=== PATIENT | female | born 1935 | race Caucasian/White ===

== ENCOUNTER 2017-10-29 23:33 | Inpatient (IN) | payer OTHER, MEDICARE ==
[2017-10-30 00:14] LABS: Arterial Blood Carboxyhemoglob 0.8 % (0-1.5); Blood O2 Saturation 97.7 % (92-98.5)
[2017-10-30 00:22] LABS: Absolute Lymphocytes (CBC) 1.1 K/uL (0.7-4.9); Absolute Monocytes 1.6 K/uL (0.1-1.3); Absolute Neutrophil 14.3 K/uL (1.8-8.0); Basophils % 0.6 % (0-1.3); Eosinophils % 0.4 % (0-4.4); Hematocrit 37.3 % (36.0-45.0); Lymphocytes % 6.4 % (15.3-44.8); MCH 31.3 pg (27.0-35.0); MCV 89.9 fL (80-100); MPV 10.2 fL (7.6-11.3); Monocytes % 9.3 % (3.3-12.3); RBC Red Blood Cell Count 4.15 M/uL (3.86-4.86)
[2017-10-30] MEDS ORDERED: NA CHLORIDE 0.9% 1,000 ML ONE (00:35)
[2017-10-30 00:39] LABS: Protime INR 1.24
[2017-10-30 00:41] LABS: Albumin 2.9 g/dL (3.4-5.0); Bilirubin Direct 0.3 mg/dL (0-0.2); Bilirubin Total 0.6 mg/dL (0.2-1.0); Potassium 3.4 mmol/L (3.5-5.1); Protein, Total 6.5 g/dL (6.4-8.2)
--- NOTE | 2017-10-30 00:47 | ER ---
Nurse's Notes [facility] Name: Mireya Farah Age: 81 yrs Sex: Female : 1935 Arrival Date: 10/29/2017 Time: 23:36 Bed 7 Private MD: Diagnosis: Urinary tract infection, site not specified;Altered mental status, unspecified;Dehydration Presentation: 10/29 23:30 Presenting complaint: EMS states: that they were toned for resp distress. States that [facility] did CXR today and it shows pleural effusions. Pt is also only responsive to painful stimuli. Transition of care: patient was not received from another setting of care. Onset of symptoms was October 29, 2017. Risk Assessment: Do you want to hurt yourself or someone else? Patient reports no desire to harm self or others. Initial Sepsis Screen: Does the patient meet any 2 criteria? RR > 20 per min. HR > 90 bpm. Does the patient have a suspected source of infection? Yes: Productive cough/pneumonia. Care prior to arrival: IV initiated. 20 GA, in the right wrist. 23:30 Method Of Arrival: EMS: [facility] 23:30 Acuity: SHEILA 2 Historical: - Allergies: 23:48 Codeine; - Home Meds: 23:48 ceftriaxone 1 gram injection solr every 12 hours [Active]; DuoNeb 0.5 mg-3 mg(2.5 mg fc base)/3 mL Inhl nebu 3 mL 4 times per day [Active]; donepezil 23 mg oral tab 1 tab once daily [Active]; lisinopril 10 mg Oral tab 1 tab once daily [Active]; phenytoin 100 mg/4 mL Oral susp 16 mL nightly [Active]; trazodone 50 mg Oral tab .5 tab nightly [Active]; Xarelto 20 mg oral tab 1 tab once daily [Active]; - PMHx: 23:48 Alzheimers; muscle atrophy; UTI; Depression; insomnia; Absence epileptic syndrome; fc hypokalemia; Dementia; Hypertension; Aphasia; CVA; - Immunization history:: Last tetanus immunization: unknown. - Social history:: Smoking status: Patient/guardian denies using tobacco. - Ebola Screening: : Patient negative for fever greater than or equal to 101.5 degrees Fahrenheit, and additional compatible Ebola Virus Disease symptoms Patient denies exposure to infectious person Patient denies travel to an Ebola-affected area in the 21 days before illness onset. Screenin:42 Abuse screen: Denies threats or abuse. Nutritional screening: No deficits noted. fc Tuberculosis screening: No symptoms or risk factors identified. Fall Risk Fall in past 12 months (25 points). Secondary diagnosis (15 points) Alzheimer's, dementia, IV access (20 points). Ambulatory Aid- None/Bed Rest/Nurse Assist (0 pts). Gait- Impaired (20 pts.). Mental Status- Overestimates/Forgets Limitations (15 pts.). Total Puri Fall Scale indicates High Risk Score (45 or more points). Fall prevention measures have been instituted. Side Rails Up X 2 Placed Close to Nursing Station Frequent Obs/Assessments Occuring Family Present and informed to notify staff if the need to leave the bedside As available patient and family educated on Fall Prevention Program and Strategies. Assessment: 23:50 General: Appears in no apparent distress. Behavior is listless. Pain: Unable to use aa1 pain scale. Patient is disoriented. FLACC scale score is 0 out of 10. Neuro: Level of Consciousness is awake, listless, Oriented to none Speech no verbal response from pt. Facial symmetry appears normal, Pupils are PERRLA, pt does not follow commands or participate with assessment. Cardiovascular: Heart tones S1 S2 present Capillary refill < 3 seconds Clubbing of nail beds is absent JVD is absent Rhythm is regular. Respiratory: Airway is patent Respiratory effort is even, unlabored, Respiratory pattern is regular, symmetrical, Breath sounds are clear bilaterally. GI: Abdomen is non-distended, Abd is soft and non tender X 4 quads. : No signs and/or symptoms were reported regarding the genitourinary system. EENT: No signs and/or symptoms were reported regarding the EENT system. EENT: Oral mucosa is dry. Derm: Skin is intact, is healthy with good turgor, Skin is pink, warm \T\ dry. Musculoskeletal: Circulation, motion, and sensation intact. Capillary refill < 3 seconds, Range of motion: limited in all extremities, passive ROM limited in all extremities. 10/30 00:55 Reassessment: Patient appears in no apparent distress at this time. No changes from aa1 previously documented assessment. Patient and/or family updated on plan of care and expected duration. Pain level reassessed. Son at bedside. Pt to be admitted to hospital. 01:45 Reassessment: Patient appears in no apparent distress at this time. Patient and/or aa1 family updated on plan of care and expected duration. Pain level reassessed. Pt admitted to 4th floor. Vital Signs: 10/29 23:30 BP 116 / 67; Pulse 106; Resp 24; Pulse Ox 97% on R/A; Weight 68.04 kg (R); Height 5 ft. fc 4 in. (162.56 cm) (R); Pain 0/10; 10/30 00:30 Temp 99.3(A); aa1 00:33 BP 111 / 59; Pulse 100; Resp 20; Pulse Ox 98% on R/A; mt 01:20 BP 112 / 61; Pulse 95; Resp 24; Pulse Ox 97% on 2 lpm NC; aa1 01:55 BP 106 / 76; Pulse 105; Resp 18; Pulse Ox 98% on R/A; mt 10/29 23:30 Body Mass Index 25.75 (68.04 kg, 162.56 cm) fc Geraldo Coma Score: 10/29 23:57 Eye Response: to voice(3). Verbal Response: incomprehensible(2). Motor Response: jr8 localizes pain(5). Total: 10. ED Course: 23:30 Arm band placed on Patient placed in an exam room, on a stretcher. fc 23:36 Patient arrived in ED. ds1 23:37 Gerry Tucker PA is PHCP. jr8 23:37 Korey Mccarthy MD is Attending Physician. jr8 23:41 Triage completed. fc 23:42 Patient has correct armband on for positive identification. Bed in low position. Call fc light in reach. Side rails up X2. picking table worker on. Pulse ox on. NIBP on. 23:42 Maintain EMS IV. Dressing intact. Good blood return noted. Site clean \T\ dry. Gauge \T\ fc site: 20 gauge to right wrist. 23:47 X-ray completed. Portable x-ray completed in exam room. Patient tolerated procedure kw well. 23:48 Chest Single View XRAY In Process Unspecified. EDMS 23:57 Dunia Barrett RN is Primary Nurse. aa1 10/30 00:19 CT Head Brain wo Cont In Process Unspecified. EDMS 00:30 Straight cath inserted, using sterile technique, 16 Fr. Returned juan urine. Patient aa1 tolerated well. done by nando Do. 00:45 Becky Pappas MD is Hospitalizing Provider. jr8 01:50 No provider procedures requiring assistance completed. Patient admitted, IV remains in fc place. 02:19 Primary Nurse role handed off by Dunia Barrett RN aa1 02:32 CT completed. Patient tolerated procedure well. Patient moved to [place] via stretcher. Patient moved back from AK. Administered Medications: 00:39 Drug: NS 0.9% 1000 ml Route: IV; Rate: 1 bolus; Site: right forearm; aa1 01:20 Follow up: IV Status: Completed infusion aa1 00:44 CANCELLED (Physician Discretion): Rocephin 2 grams IV at calculated rate once; Given jr8 slow IV push per pharmarcy instructions 01:19 Drug: Potassium Chloride 20 mEq Route: IV; Rate: calculated rate; Site: right forearm; aa1 02:00 Follow up: IV Status: Infusion continued upon admission aa1 01:20 Drug: Zosyn 3.375 grams Route: IVPB; Infused Over: 60 mins; Site: right forearm; aa1 02:00 Follow up: IV Status: Infusion continued upon admission aa1 Intake: 01:20 IV: 1000ml (IV Fluid); Total: 1000ml. aa1 Outcome: 00:46 Decision to Hospitalize by Provider. jr8 01:50 Admitted to [facility] by [facility], via stretcher, room 431, with chart, Report fc called to Tanja HORNER 01:50 Condition: good 01:50 Discharge instructions given to family, Instructed on the need for admit, Demonstrated understanding of instructions. 02:00 Patient left the ED. aa1 Signatures: Dispatcher [employer] EDMS Dunia Barrett, [place] RN aa1 Kyler Geller Anna Meyers RN RN Tsering Wong ds1 Reyna Wylie Josh, PA PA jr8 Dipika Shaikh ak Corrections: (The following items were deleted from the chart) 00:41 00:30 Straight cath inserted, using sterile technique, 16 Fr. Returned juan urine. aa1 Patient tolerated well. aa1 02:22 02:17 Patient left the ED. aa1 aa1 02:22 02:21 Patient left the ED. aa1 aa1
--- NOTE | 2017-10-30 00:47 | EDPHYS ---
Physician Documentation [facility] Name: Mireya Farah Age: 81 yrs Sex: Female : 1935 Arrival Date: 10/29/2017 Time: 23:36 Bed 7 Private MD: ED Physician Korey Mccarthy HPI: 10/29 23:57 This 81 yrs old Female presents to ER via EMS with complaints of AMS. jr8 23:57 The patient presents with decreased mental status, decreased responsiveness. Onset: The jr8 symptoms/episode began/occurred acutely, today. Possible causes: unknown. Associated signs and symptoms: Pertinent positives: shortness of breath. Current symptoms: In the emergency department the patient's symptoms are unchanged from the initial presentation. Patient's baseline: Neuro: alert but confused, Motor: no deficits, Speech: normal. It is unknown whether or not the patient has had similar symptoms in the past. It is unknown whether or not the patient has recently seen a physician. EMS called out initially for respiratory distress. Patient without distress upon arrival. Awake but non responsive to verbal stimulus. Will only moan with painful stimulus . Historical: - Allergies: 23:48 Codeine; fc - Home Meds: 23:48 ceftriaxone 1 gram injection solr every 12 hours [Active]; DuoNeb 0.5 mg-3 mg(2.5 mg fc base)/3 mL Inhl nebu 3 mL 4 times per day [Active]; donepezil 23 mg oral tab 1 tab once daily [Active]; lisinopril 10 mg Oral tab 1 tab once daily [Active]; phenytoin 100 mg/4 mL Oral susp 16 mL nightly [Active]; trazodone 50 mg Oral tab .5 tab nightly [Active]; Xarelto 20 mg oral tab 1 tab once daily [Active]; - PMHx: 23:48 Alzheimers; muscle atrophy; UTI; Depression; insomnia; Absence epileptic syndrome; fc hypokalemia; Dementia; Hypertension; Aphasia; CVA; - Immunization history:: Last tetanus immunization: unknown. - Social history:: Smoking status: Patient/guardian denies using tobacco. - Ebola Screening: : Patient negative for fever greater than or equal to 101.5 degrees Fahrenheit, and additional compatible Ebola Virus Disease symptoms Patient denies exposure to infectious person Patient denies travel to an Ebola-affected area in the 21 days before illness onset. ROS: 23:57 Unable to obtain ROS due to altered mental status. jr8 Exam: 23:57 Eyes: Pupils equal round and reactive to light, extra-ocular motions intact. Lids and jr8 lashes normal. Conjunctiva and sclera are non-icteric and not injected. Cornea within normal limits. Periorbital areas with no swelling, redness, or edema. ENT: Nares patent. No nasal discharge, no septal abnormalities noted. Tympanic membranes are normal and external auditory canals are clear. Oropharynx with no redness, swelling, or masses, exudates, or evidence of obstruction, uvula midline. Mucous membranes moist. Neck: Trachea midline, no thyromegaly or masses palpated, and no cervical lymphadenopathy. Supple Cardiovascular: Sinus tachycardia with a normal S1 and S2. No gallops, murmurs, or rubs. Normal PMI, no JVD. No pulse deficits. Respiratory: Lungs have equal breath sounds bilaterally, clear to auscultation and percussion. No rales, rhonchi or wheezes noted. No increased work of breathing, no retractions or nasal flaring. Abdomen/GI: Soft, non-tender, with normal bowel sounds. No distension or tympany. No guarding or rebound. No evidence of tenderness throughout. Skin: Warm, dry with normal turgor. Normal color with no rashes, no lesions, and no evidence of cellulitis. MS/ Extremity: Pulses equal, no cyanosis. Neurovascular intact. Full, normal range of motion. 23:57 Neuro: Orientation: Not oriented to person, place, time, situation, Motor: withdrawals from pain, Sensation: no obvious gross deficits, seizure activity, is not displayed by the patient, Abnormal movements: there are no abnormal movements. Vital Signs: 23:30 BP 116 / 67; Pulse 106; Resp 24; Pulse Ox 97% on R/A; Weight 68.04 kg (R); Height 5 ft. fc 4 in. (162.56 cm) (R); Pain 0/10; 07 00:30 Temp 99.3(A); aa1 00:33 BP 111 / 59; Pulse 100; Resp 20; Pulse Ox 98% on R/A; mt 01:20 BP 112 / 61; Pulse 95; Resp 24; Pulse Ox 97% on 2 lpm NC; aa1 01:55 BP 106 / 76; Pulse 105; Resp 18; Pulse Ox 98% on R/A; mt 10/29 23:30 Body Mass Index 25.75 (68.04 kg, 162.56 cm) fc Bingham Coma Score: 10/29 23:57 Eye Response: to voice(3). Verbal Response: incomprehensible(2). Motor Response: jr8 localizes pain(5). Total: 10. MDM: 23:37 Patient medically screened. 10/30 00:45 Data reviewed: vital signs, nurses notes, lab test result(s), EKG, radiologic studies, jr8 CT scan, plain films, and as a result, I will admit patient. Data interpreted: Pulse oximetry: on room air is 98 %. Interpretation: normal. Counseling: I had a detailed discussion with the patient and/or guardian regarding: the historical points, exam findings, and any diagnostic results supporting the discharge/admit diagnosis, lab results, radiology results, the need for further work-up and treatment in the hospital. 10/29 23:38 Order name: ABG; Complete Time: 00:28 10/29 23:38 Order name: Urine Microscopic Only 10/29 23:38 Order name: Basic Metabolic Panel 10/29 23:38 Order name: Blood Culture Adult (2) 10/29 23:38 Order name: CBC with Diff; Complete Time: 00:41 [facility] 10/29 23:38 Order name: Lactate; Complete Time: 00:41 10/29 23:38 Order name: LFT's; Complete Time: 00:41 10/29 23:38 Order name: Lipase; Complete Time: 00:41 10/29 23:38 Order name: Procalcitonin; Complete Time: 01:18 10/29 23:38 Order name: Protime (+inr); Complete Time: 00:41 10/29 23:38 Order name: Troponin (emerg Dept Use Only); Complete Time: 00:50 10/29 23:39 Order name: Urine Microscopic Only; Complete Time: 01:18 [facility] 10/29 23:39 Order name: Basic Metabolic Panel; Complete Time: 00:41 [facility] 10/30 00:43 Order name: Urine Dipstick--Ancillary (enter results); Complete Time: 00:56 2 10/29 23:38 Order name: Cath; Complete Time: 00:36 8 10/29 23:38 Order name: Chest Single View XRAY 8 10/29 23:38 Order name: Accucheck; Complete Time: 00:36 8 10/29 23:38 Order name: Cardiac monitoring; Complete Time: 00:11 [facility] 10/29 23:38 Order name: EKG - Nurse/Tech; Complete Time: 00:11 [facility] 10/29 23:38 Order name: IV Saline Lock - Large Bore; Complete Time: 00:11 [facility] 10/29 23:38 Order name: Labs collected and sent; Complete Time: 00:11 [facility] 10/29 23:38 Order name: O2 Per Protocol; Complete Time: 00:11 [facility] 10/29 23:38 Order name: CT Head Brain wo Cont [facility] 10/30 00:56 Order name: LAB Add On [facility] 10/30 00:58 Order name: Phenytoin (Dilantin) Level; Complete Time: 01:18 [facility] 10/30 01:07 Order name: Urine Culture [facility] 10/29 23:38 Order name: O2 Sat Monitoring; Complete Time: 00:11 [facility] 10/29 23:38 Order name: Urine Dipstick-Ancillary (obtain specimen); Complete Time: 00:36 jr8 Administered Medications: 00:39 Drug: NS 0.9% 1000 ml Route: IV; Rate: 1 bolus; Site: right forearm; aa1 01:20 Follow up: IV Status: Completed infusion aa1 00:44 CANCELLED (Physician Discretion): Rocephin 2 grams IV at calculated rate once; Given jr8 slow IV push per pharmarcy instructions 01:19 Drug: Potassium Chloride 20 mEq Route: IV; Rate: calculated rate; Site: right forearm; aa1 02:00 Follow up: IV Status: Infusion continued upon admission aa1 01:20 Drug: Zosyn 3.375 grams Route: IVPB; Infused Over: 60 mins; Site: right forearm; aa1 02:00 Follow up: IV Status: Infusion continued upon admission aa1 Disposition: 07:00 Co-signature as Attending Physician, Korey Mccarthy MD I agree with the assessment and eleazar plan of care. Disposition: 07/10/18 00:46 Hospitalization ordered by Becky Pappas for Inpatient Admission. Preliminary diagnosis are Urinary tract infection, site not specified, Altered mental status, unspecified, Dehydration. - Bed requested for Telemetry/MedSurg (Inpatient). - Status is Inpatient Admission. aa1 - Condition is Fair. - Problem is new. - Symptoms are unchanged. UTI on Admission? Yes Signatures: Dispatcher [employer] EDMS Ritika Bello RN RN Dunia Barrett RN RN aa Korey Mccarthy MD MD cha Chretien, Felicia, RN RN Gerry Tucker PA PA jr8 Corrections: (The following items were deleted from the chart) 00:44 00:42 Rocephin 2 grams IV at calculated rate once; Given slow IV push per pharmarcy jr8 instructions ordered. jr8 00:47 00:46 Hospitalization Ordered by Becky Pappas MD for Inpatient Admission. Preliminary jr8 diagnosis is Pneumonia due to other specified bacteria; Urinary tract infection, site not specified; Altered mental status, unspecified; Dehydration. Bed requested for Telemetry/MedSurg (Inpatient). Status is Inpatient Admission. Condition is Fair. Problem is new. Symptoms are unchanged. UTI on Admission? Yes. jr8 00:49 00:47 10/30/2017 00:46 Hospitalization Ordered by Becky Pappas MD for Inpatient Admission. Preliminary diagnosis is Urinary tract infection, site not specified; Altered mental status, unspecified; Dehydration. Bed requested for Telemetry/MedSurg (Inpatient). Status is Inpatient Admission. Condition is Fair. Problem is new. Symptoms are unchanged. UTI on Admission? Yes. jr8 02:17 00:49 10/30/2017 00:46 Hospitalization Ordered by Becky Pappas MD for Inpatient aa1 Admission. Preliminary diagnosis is Pneumonia due to other specified bacteria; Urinary tract infection, site not specified; Altered mental status, unspecified; Dehydration. Bed requested for Telemetry/MedSurg (Inpatient). Status is Inpatient Admission. Condition is Fair. Problem is new. Symptoms are unchanged. UTI on Admission? Yes. 02:21 02:17 10/30/2017 00:46 Hospitalization Ordered by Becky Pappas MD for Inpatient aa1 Admission. Preliminary diagnosis is Urinary tract infection, site not specified; Altered mental status, unspecified; Dehydration. Bed requested for Telemetry/MedSurg (Inpatient). Status is Inpatient Admission. Condition is Fair. Problem is new. Symptoms are unchanged. UTI on Admission? Yes. aa1
[2017-10-30 00:55] LABS: Urine Blood 3+ (NEG); Urine Glucose TRACE (NEG); Urine Protein 3+ (NEG); Urine Specific Gravity >1.030 (1.005-1.030)
[2017-10-30 01:06] LABS: Urine Bacteria >50 /HPF (<20); Urine Culture Reflex Order REFLEXED; Urine RBC TNTC /HPF (NONE SEEN)
[2017-10-30] MEDS ORDERED: PIPER/TAZO/NS 3.375gm 3.375 GM/100 ML BAG ONE (01:08)
[2017-10-30] MEDS ORDERED: KCL 20 MEQ/100 mL IVPB 20 MEQ/100 ML BAG IV ONE (01:08)
[2017-10-30] MEDS ORDERED: NA CHLORIDE 0.9% 500 ML ONE (01:13)
--- NOTE | 2017-10-30 01:41 | P.HP ---
Certification for Inpatient Patient admitted to: Inpatient With expected LOS: >2 Midnights Practitioner: I am a practitioner with admitting privileges, knowledge of patient current condition, hospital course, and medical plan of care. Services: Services provided to patient in accordance with Admission requirements found in Title 42 Section 412.3 of the Code of Federal Regulations Patient History Date of Service: 10/30/17 Reason for admission: UTI, AMS History of Present Illness: Ms Farah is an 81 years old woman with history of Dementia, HTN, seizure disorder, who is resident of a local assisted, was transferred to ED because she was found with AMS. The patient was not responsive, she had a CXR in the assisted showing pleural effusion. No reported history of fever or chills. In ER lab work remarkable for leukocytosis 17.1K, hypokalemia, abnormal UA consistent with UTI. CT head shows no acute abnormalities. Allergies codeine [Codeine] Adverse Reaction (Mild, Verified 10/30/17 01:13) Nausea/Vomiting Home medications list reviewed: Yes Home Medications: Lisinopril [Zestril] 10 mg PO DAILY 03/20/14 Trazodone [Desyrel*] 25 mg PO BEDTIME 08/19/14 Ceftriaxone [Rocephin] 1,000 mg IM BID 10/30/17 Donepezil HCl 23 mg PO DAILY 10/30/17 Phenytoin Susp [Dilantin Oral Susp*] 16 ml PO BEDTIME 10/30/17 Rivaroxaban [Xarelto] 20 mg PO DAILY 10/30/17 - Past Medical/Surgical History Diabetic: No -: ? fungual? pneumonia ~ 10 yrs ago. -: dementia -: seizures -: alzheimers -: UTI -: Hypokalemia -: Leukocytosis -: Fall -: tonsilectomy -: hysperectomy -: appy - Family History Family History: Reviewed- Non-Contributory - Social History Alcohol use: No CD- Drugs: No Caffeine use: No Place of Residence: [facility] Review of Systems is unable to be obtained (patient is not able to answer questions) Physical Examination - Physical Exam General: Alert, In no apparent distress HEENT: Atraumatic, PERRLA, Other (mucous membr. very dry), EOMI, Sclerae nonicteric Neck: Supple, 2+ carotid pulse no bruit, No LAD, Without JVD or thyroid abnormality Respiratory: Normal air movement, Other (coarse bilateral) Cardiovascular: Regular rate/rhythm, Normal S1 S2 Gastrointestinal: Normal bowel sounds, No tenderness Musculoskeletal: No tenderness Integumentary: No rashes Neurological: Normal strength at 5/5 x4 extr, Normal tone, Sensation intact Lymphatics: No axilla or inguinal lymphadenopathy - Studies Laboratory Data (last 24 hrs) 10/29/17 23:59: PT 14.7 H, INR 1.24 10/29/17 23:59: WBC 17.1 H, Hgb 13.0, Hct 37.3, Plt Count 289 10/29/17 23:59: Sodium 142, Potassium 3.4 L, BUN 16, Creatinine 0.70, Glucose 139 H, Total Bilirubin 0.6, AST 30, ALT 35, Alkaline Phosphatase 177 H, Lipase 136 Assessment and Plan - Problems (Diagnosis) (1) Acute encephalopathy Current Visit: Yes Status: Acute (2) Dementia Onset Date: 04/03/16 Current Visit: No Status: Acute Qualifiers: Dementia type: Alzheimer's disease Alzheimer's disease onset: unspecified onset Dementia behavioral disturbance: without behavioral disturbance Qualified Code(s): G30.9 - Alzheimer's disease, unspecified; F02.80 - Dementia in other diseases classified elsewhere without behavioral disturbance (3) Seizure disorder Onset Date: 04/03/16 Current Visit: No Status: Acute (4) UTI (urinary tract infection) Onset Date: 04/03/16 Current Visit: No Status: Acute Qualifiers: Urinary tract infection type: acute cystitis Hematuria presence: without hematuria Qualified Code(s): N30.00 - Acute cystitis without hematuria - Plan The patient will be admitted to the hospital due to acute encephalopathy secondary to UTI. She is tachycardic, with blood pressure on the lower side. Will continue IV fluids, IV antibiotics. Will keep her NPO until improve her mentation. Blood and Urine culture in process. - Advance Directives Does patient have a Living Will: No Does patient have a Durable POA for Healthcare: Yes - Code Status/Comfort Care Code Status Assessed: Yes Code Status: Full Code
[2017-10-30] MEDS ORDERED: ONDANSETRON 4 MG/2 ML VIAL IV PRN (02:27)
[2017-10-30 02:29] VITALS: BMI 26.8
[2017-10-30] MEDS: NA CHLORIDE 0.9% 1,000 ML IV SCH ×3 (02:39→23:52)
[2017-10-30] MEDS ORDERED: KCL 20 MEQ/100 mL IVPB 20 MEQ/100 ML BAG IV SCH ×2 (05:00→17:00)
--- NOTE | 2017-10-30 07:56 | P.PN ---
Subjective Date of Service: 10/30/17 Primary Care Provider: residential Chief Complaint: UTI, AMS Subjective: Demented, Other (Patient resting in bed.) Physical Examination - Vital Signs Temperature: 97.0 F Blood Pressure: 106/58 Pulse: 78 Respirations: 18 Pulse Ox (%): 98 - Physical Exam General: Alert, Demented HEENT: Atraumatic Neck: Supple Respiratory: Clear to auscultation bilaterally, Normal air movement Cardiovascular: Normal pulses, Regular rate/rhythm Gastrointestinal: Normal bowel sounds, Soft and benign, Non-distended, No tenderness, No masses, No rebound, No guarding Musculoskeletal: No erythema, No tenderness, No warmth Neurological: Dementia - Studies Laboratory Data (last 24 hrs) 10/29/17 23:59: PT 14.7 H, INR 1.24 10/29/17 23:59: WBC 17.1 H, Hgb 13.0, Hct 37.3, Plt Count 289 10/29/17 23:59: Sodium 142, Potassium 3.4 L, BUN 16, Creatinine 0.70, Glucose 139 H, Total Bilirubin 0.6, AST 30, ALT 35, Alkaline Phosphatase 177 H, Lipase 136 Medications List Reviewed: Yes Assessment & Plan - Problems (Diagnosis) (1) Hypertension Current Visit: Yes Status: Chronic Plan: Will restart longterm medication. Will need to verify medication. Will hold if blood pressure systolic less than 120. Qualifiers: Hypertension type: essential hypertension Qualified Code(s): I10 - Essential (primary) hypertension (2) Acute encephalopathy Current Visit: Yes Status: Acute Plan: Likely from UTI. Patient with recurrent UTI. Will continue with antibiotic therapy. Will monitor electrolytes and white count. Urine and blood culture obtained. (3) Dementia Onset Date: 08/19/14 Current Visit: No Status: Chronic Plan: Continue her longterm medication. Qualifiers: Dementia type: Alzheimer's disease (4) Seizure disorder Onset Date: 04/03/16 Current Visit: No Status: Chronic Plan: Continue her longterm medication. (5) UTI (urinary tract infection) Onset Date: 04/03/16 Current Visit: No Status: Acute Plan: Continue antibiotic therapy. Await urine and blood culture results. Pro calcitonin negative. Qualifiers: Urinary tract infection type: acute cystitis Hematuria presence: without hematuria Qualified Code(s): N30.00 - Acute cystitis without hematuria (6) Chronic anticoagulation Current Visit: Yes Status: Chronic Plan: Patient taking Xarelto. Suspect underlying atrial fibrillation. Will need to verify with snf. Discharge Plan: Long-Term Plan to discharge in: Greater than 2 days - Code Status/Comfort Care Code Status Assessed: Yes (Will need to verify advanced directives) Time Spent Managing Pts Care (In Minutes): 55
--- NOTE | 2017-10-30 08:29 | RAD REPORT ---
EXAM DESCRIPTION: RAD - Chest Single View - 10/29/2017 11:51 pm CLINICAL HISTORY: AMS Chest pain. COMPARISON: Chest Single View dated 04/02/2016; Chest Single View dated 04/01/2016; CHEST SINGLE VIE W dated 08/19/2014; CHEST SINGLE VIEW dated 03/21/2014 FINDINGS: Portable technique limits examination quality. Bibasilar opacities are present, greatest in the left lower lobe, suspicious for pneumonia. Small to moderate right pleural effusion is suspected. The lungs are mildly emphysematous. The heart is normal in size. No displaced fractures.
--- NOTE | 2017-10-30 08:32 | RAD REPORT ---
EXAM DESCRIPTION: CT - Head Brain Wo Cont - 10/30/2017 6:41 am CLINICAL HISTORY: MENTAL STATUS CHANGE Syncope with fall. COMPARISON: Head Brain Wo Cont dated 04/01/2016; HEAD BRAIN W O CONTRAST dated 04/23/2014Head Brain Wo Cont dated 04/01/2016; HEAD BRAIN W O CONTRAST dated 04/23/2014; HEAD BRAIN W O CONTRAST dated 03/28/20 13 TECHNIQUE: All CT scans are performed using dose optimization technique as appropriate and may inclu de automated exposure control or mA/KV adjustment according to patient size. FINDINGS: No intracranial hemorrhage, hydrocephalus or extra-axial fluid collection.Moderate general ized brain atrophy is present with moderate periventricular and deep white matter chronic microvascul ar ischemic changes.No areas of brain edema or evidence of midline shift. 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 The paranasal sinuses and mastoids are clear. The calvarium is intact. IMPRESSION: No acute intracranial abnormality.
--- NOTE | 2017-10-30 08:36 | EKG ---
Test Date: 2017-10-29 Test Time: 23:35:21 Stockroom Helper: RAN MEASUREMENT RESULTS: Intervals: Rate: 105 [place]: 154 QRSD: 76 QT: 350 QTc: 462 [place]: P: 80 [place]: 154 QRS: 2 T: 81 INTERPRETIVE STATEMENTS: Sinus tachycardia Low voltage QRS Cannot rule out Anterior infarct, age undetermined Abnormal ECG Compared to ECG 04/02/2016 05:45:23 Low QRS voltage now present Myocardial infarct finding now present Sinus rhythm no longer present Sinus arrhythmia no longer present Electronically Signed On 10-30-17 08:35:13 CDT by Major Flynn
[2017-10-30] MEDS: LISINOPRIL 10 MG TAB PO SCH (09:00)
[2017-10-30] MEDS ORDERED: CEFTRIAXONE/SWI 1gm 1 GM/10 ML SYR IV SCH (09:00)
[2017-10-30] MEDS: DONEPEZIL HCL 5 MG TAB PO SCH ×2 (09:00→21:35)
[2017-10-30] MEDS ORDERED: CEFTRIAXONE 1 GM/NS 50 ML 1 GM/50 ML BAG IV SCH (09:00)
[2017-10-30] MEDS ORDERED: LISINOPRIL 10 MG TAB PO SCH (09:00)
[2017-10-30] MEDS: Levofloxacin500mg IV 500 MG/100 ML BAG IV SCH (12:01)
[2017-10-30] MEDS: RIVAROXABAN 20 MG TABLET PO SCH ×2 (16:57→17:14)
[2017-10-30] MEDS: PHENYTOIN 125 MG/5 ML ORAL.SUSP PO SCH (21:00)
[2017-10-30] MEDS: TRAZODONE 50 MG TABLET PO SCH (21:34)
[2017-10-31 04:36] LABS: Absolute Lymphocytes (CBC) 0.9 K/uL (0.7-4.9); Absolute Monocytes 1.1 K/uL (0.1-1.3); Absolute Neutrophil 6.2 K/uL (1.8-8.0); Basophils % 1.1 % (0-1.3); Eosinophils % 2.8 % (0-4.4); Hematocrit 32.6 % (36.0-45.0); Lymphocytes % 10.5 % (15.3-44.8); MCH 31.8 pg (27.0-35.0); MCV 89.5 fL (80-100); MPV 10.4 fL (7.6-11.3); Monocytes % 12.7 % (3.3-12.3); RBC Red Blood Cell Count 3.64 M/uL (3.86-4.86)
[2017-10-31 04:55] LABS: BUN Blood Urea Nitrogen 8 mg/dL (7-18); Bicarbonate 25 mmol/L (21-32); Glucose Level 88 mg/dL (74-106); Magnesium 1.8 mg/dL (1.8-2.4); Potassium 3.6 mmol/L (3.5-5.1); Sodium Level 142 mmol/L (136-145)
[2017-10-31] MEDS ORDERED: POTASSIUM CL SA 10 MEQ TAB PO ONE (05:08)
[2017-10-31] MEDS ORDERED: MAGNESIUM SULFATE 1 gm IVPB 1 GM/100 ML BAG IV ONE (05:08)
[2017-10-31] MEDS ORDERED: Magnesium Sulfate 1gm IVPB 1 GM/50 ML BAG IV ONE (05:37)
--- NOTE | 2017-10-31 09:00 | RAD REPORT ---
EXAM DESCRIPTION: RAD - Chest Single View - 10/31/2017 6:39 am CLINICAL HISTORY: Follow up Pneumonia and Pleural effusions. Chest pain. COMPARISON: Chest Single View dated 10/29/2017; Chest Single View dated 04/02/2016; Chest Single View dated 04/01/2016; CHEST SINGLE VIEW dated 08/19/2014 FINDINGS: Portable technique limits examination quality. Mild improvement is noted in the left lung base aeration since comparative study. Right pleural effus ion is still present, similar to comparative exam. The heart is normal in size. No displaced fracture s. IMPRESSION: Mild improvement left lung base aeration since comparative study.
[2017-10-31] MEDS: LISINOPRIL 10 MG TAB PO SCH (09:33)
[2017-10-31] MEDS: NA CHLORIDE 0.9% 1,000 ML IV SCH ×2 (09:34→17:29)
[2017-10-31] MEDS: DONEPEZIL HCL 5 MG TAB PO SCH ×2 (09:34→20:47)
[2017-10-31] MEDS: Levofloxacin500mg IV 500 MG/100 ML BAG IV SCH (10:24)
--- NOTE | 2017-10-31 12:49 | P.PN ---
Subjective Date of Service: 10/31/17 Primary Care Provider: [facility] Chief Complaint: UTI, AMS Subjective: Demented, Other (Patient more alert today.) Physical Examination - Vital Signs Temperature: 97.9 F Blood Pressure: 125/63 Pulse: 84 Respirations: 20 Pulse Ox (%): 97 - Physical Exam General: Alert, In no apparent distress, Demented HEENT: Atraumatic Neck: Supple Respiratory: Other (Better aeration bilateral) Cardiovascular: Regular rate/rhythm Gastrointestinal: Normal bowel sounds, Soft and benign, Non-distended, No tenderness, No masses, No rebound, No guarding Musculoskeletal: No erythema, No tenderness, No warmth Integumentary: No erythema, No warmth, No cyanosis Neurological: Dementia - Studies Medications List Reviewed: Yes Assessment & Plan - Problems (Diagnosis) (1) Hypertension Onset Date: 10/30/17 Current Visit: Yes Status: Chronic Plan: Will continue with her medication. Will monitor and adjust appropriately Qualifiers: Hypertension type: essential hypertension Qualified Code(s): I10 - Essential (primary) hypertension (2) Acute encephalopathy Onset Date: 10/30/17 Current Visit: Yes Status: Acute Plan: Likely from UTI and pneumonia. Continue antibiotic coverage. Overall improved. Discuss with son. Son broad advanced directives. Patient is DNR. [facility]ticipate [facility] likely tomorrow. (3) Dementia Onset Date: 08/19/14 Current Visit: No Status: Chronic Plan: Continue her jail medication. Qualifiers: Dementia type: Alzheimer's disease (4) Seizure disorder Onset Date: 04/03/16 Current Visit: No Status: Chronic Plan: Continue her jail medication. (5) UTI (urinary tract infection) Onset Date: 04/03/16 Current Visit: No Status: Acute Plan: Continue antibiotic therapy. Await urine and blood culture results. Pro calcitonin negative. Qualifiers: Urinary tract infection type: acute cystitis Hematuria presence: without hematuria Qualified Code(s): N30.00 - Acute cystitis without hematuria (6) Chronic anticoagulation Onset Date: 10/30/17 Current Visit: Yes Status: Chronic Plan: Patient taking Xarelto. Patient with history of DVT. (7) Pneumonia Current Visit: Yes Status: Acute Plan: Continue with antibiotic coverage. Chest x-ray shows improvement. Wean off oxygen. Qualifiers: Aspiration pneumonia type: unspecified Laterality: bilateral Lung location: lower lobe of lung (8) History of DVT (deep vein thrombosis) Current Visit: Yes Status: Chronic Plan: Patient on chronic anti coagulation therapy. Discharge Plan: Longterm Plan to discharge in: 24 Hours - Code Status/Comfort Care Code Status Assessed: Yes (Patient is DNR. Papers in place.) Time Spent Managing Pts Care (In Minutes): 55
[2017-10-31] MEDS: RIVAROXABAN 20 MG TABLET PO SCH (17:28)
[2017-10-31] MEDS: TRAZODONE 50 MG TABLET PO SCH (20:47)
[2017-10-31] MEDS: PHENYTOIN 125 MG/5 ML ORAL.SUSP PO SCH (21:00)
[2017-11-01] MEDS: NA CHLORIDE 0.9% 1,000 ML IV SCH (03:03)
[2017-11-01 03:54] LABS: Absolute Lymphocytes (CBC) 0.9 K/uL (0.7-4.9); Absolute Neutrophil 5.2 K/uL (1.8-8.0); Eosinophils % 3.3 % (0-4.4); Hematocrit 32.3 % (36.0-45.0); Lymphocytes % 11.6 % (15.3-44.8); MCH 31.9 pg (27.0-35.0); MCV 89.8 fL (80-100); MPV 9.5 fL (7.6-11.3)
[2017-11-01 04:04] LABS: BUN Blood Urea Nitrogen 3 mg/dL (7-18); Bicarbonate 27 mmol/L (21-32); Glucose Level 95 mg/dL (74-106); Magnesium 2.1 mg/dL (1.8-2.4); Potassium 3.4 mmol/L (3.5-5.1); Sodium Level 144 mmol/L (136-145)
[2017-11-01] MEDS: KCL 20 MEQ/100 mL IVPB 20 MEQ/100 ML BAG IV SCH ×2 (06:12→08:00)
--- NOTE | 2017-11-01 08:18 | RAD REPORT ---
EXAM DESCRIPTION: Alejandrina Single View11/01/2017 7:59 am CLINICAL HISTORY: Chest pain COMPARISON: October 31 FINDINGS: The mid and lower right hemithorax remain hazy. Mild additional bilateral pulmonary opaci ties are seen. The heart is borderline enlarged IMPRESSION: The mid and lower right hemithorax are hazy probably representing a small to moderate pl eural effusion with atelectasis. An underlying pneumonia could be present. Mild bilateral pulmonary opacities may represent mild interstitial pulmonary edema
[2017-11-01] MEDS: DONEPEZIL HCL 5 MG TAB PO SCH (09:35)
[2017-11-01] MEDS: LISINOPRIL 10 MG TAB PO SCH (09:35)
--- NOTE | 2017-11-01 09:44 | P.DS ---
Admission Date: 10/30/17 Discharge Date: 11/01/17 Primary Care Provider: shelter Disposition: TRANSFER TO JAIL Discharge Condition: GOOD Reason for Admission: UTI, AMS Procedures: CT head: COMPARISON: Head Brain Wo Cont dated 04/01/2016; HEAD BRAIN W O CONTRAST dated 04/23/2014Head Brain Wo Cont dated 04/01/2016; HEAD BRAIN W O CONTRAST dated 2014; HEAD BRAIN W O CONTRAST dated 03/28/2013 TECHNIQUE: All CT scans are performed using dose optimization technique as appropriate and may include automated exposure control or mA/KV adjustment according to patient size. FINDINGS: No intracranial hemorrhage, hydrocephalus or extra-axial fluid collection.Moderate generalized brain atrophy is present with moderate periventricular and deep white matter chronic microvascular ischemic changes.No areas of brain edema or evidence of midline shift. 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 The paranasal sinuses and mastoids are clear. The calvarium is intact. IMPRESSION: No acute intracranial abnormality Chest x-ray: COMPARISON: Chest Single View dated 04/02/2016; Chest Single View dated 2015; CHEST SINGLE VIEW dated 08/19/2014; CHEST SINGLE VIEW dated 03/21/2014 FINDINGS: Portable technique limits examination quality. Bibasilar opacities are present, greatest in the left lower lobe, suspicious for pneumonia. Small to moderate right pleural effusion is suspected. The lungs are mildly emphysematous. The heart is normal in size. No displaced fractures. - Problems (1) Hypertension Onset Date: 10/30/17 Current Visit: Yes Status: Chronic Qualifiers: Hypertension type: essential hypertension Qualified Code(s): I10 - Essential (primary) hypertension (2) Acute encephalopathy Onset Date: 10/30/17 Current Visit: Yes Status: Acute (3) Dementia Onset Date: 08/19/14 Current Visit: No Status: Chronic Qualifiers: Dementia type: Alzheimer's disease (4) Seizure disorder Onset Date: 04/03/16 Current Visit: No Status: Chronic (5) Chronic anticoagulation Onset Date: 10/30/17 Current Visit: Yes Status: Chronic (6) Pneumonia Current Visit: Yes Status: Acute Qualifiers: Aspiration pneumonia type: unspecified Laterality: bilateral Lung location: lower lobe of lung (7) History of DVT (deep vein thrombosis) Current Visit: Yes Status: Chronic Brief History of Present Illness: 81-year-old female presented to emergency room after she was sent from the correction with altered mental status. Patient was evaluated in the emergency room. Chest x-ray showed possible bilateral pneumonia left greater than right. There was also some suspicion for UTI. Patient was admitted for treatment. Patient with history of dementia, hypertension and previous DVT on chronic anti coagulation therapy. Hospital Course: During the course of her stay patient was treated for UTI and pneumonia. So far urine culture negative. Chest x-ray shows improvement in the bilateral pneumonia. Left greater than right. Patient has not required any oxygen. White count improved. Pro calcitonin negative. Blood cultures negative. At discharge the patient will return to the correction. Patient will continue with Levaquin 500 mg daily for 7 days. Recommendation to recheck x-ray in 2-4 weeks to monitor resolution. Patient has hypertension. Patient will continue with her medication-lisinopril 10 mg daily. Recommendation is to maintain blood pressures less 150/80. Further adjustment can be done by her PCP. Patient has a history of a seizure disorder. She will continue with her medication-Dilantin suspension [address] scan of the head unremarkable. Patient has severe dementia. Patient is not oriented to time, person and place. Patient interactive at times but bed-bound. Patient will continue with her medication-Aricept 23 mg daily and trazodone 25 mg at night for insomnia. Patient has history of DVT. Patient will continue with chronic anti coagulation therapy-Xarelto 20 mg daily. Advanced directives were addressed with son. Patient has paperwork for DNR. Vital Signs/Physical Exam: Temp Pulse Resp BP Pulse Ox 97.3 F 83 18 155/64 H 96 11/01/17 08:00 11/01/17 09:35 11/01/17 08:00 11/01/17 09:35 11/01/17 08:00 General: Alert, In no apparent distress, Demented (Severe dementia) HEENT: Atraumatic Neck: Supple Respiratory: Clear to auscultation bilaterally, Normal air movement Cardiovascular: Normal pulses, Regular rate/rhythm Gastrointestinal: Normal bowel sounds, Soft and benign, Non-distended, No tenderness, No masses, No rebound, No guarding Musculoskeletal: No erythema, No tenderness, No warmth, Other (Muscle atrophy to the upper lower extremities.) Integumentary: No warmth, No cyanosis Neurological: Other (Patient bed-bound), Dementia (Severe dementia) Laboratory Data at Discharge: WBC 7.4 K/uL (4.3-10.9) 11/01/17 03:35 Hgb 11.5 g/dL (12.0-15.0) L 11/01/17 03:35 Hct 32.3 % (36.0-45.0) L 11/01/17 03:35 Plt Count 234 K/uL (152-406) 11/01/17 03:35 PT 14.7 SECONDS (9.5-12.5) H 10/29/17 23:59 INR 1.24 10/29/17 23:59 Sodium 144 mmol/L (136-145) 11/01/17 03:35 Potassium 3.4 mmol/L (3.5-5.1) L 11/01/17 03:35 BUN 3 mg/dL (7-18) L 11/01/17 03:35 Creatinine 0.40 mg/dL (0.55-1.3) L 11/01/17 03:35 Glucose 95 mg/dL (74-106) 11/01/17 03:35 Magnesium 2.1 mg/dL (1.8-2.4) 11/01/17 03:35 Total Bilirubin 0.6 mg/dL (0.2-1.0) 10/29/17 23:59 AST 30 U/L (15-37) 10/29/17 23:59 ALT 35 U/L (12-78) 10/29/17 23:59 Alkaline Phosphatase 177 U/L (45-117) H 10/29/17 23:59 Lipase 136 U/L (73-393) 10/29/17 23:59 Home Medications: Lisinopril [Zestril] 10 mg PO DAILY 03/20/14 Trazodone [Desyrel*] 25 mg PO BEDTIME 08/19/14 Donepezil HCl 23 mg PO DAILY 10/30/17 Phenytoin Susp [Dilantin Oral Susp*] 16 ml PO BEDTIME 10/30/17 Rivaroxaban [Xarelto] 20 mg PO DAILY 10/30/17 Levofloxacin [Levaquin] 500 mg PO DAILY #7 tablet 11/01/17 New Medications: Levofloxacin [Levaquin] 500 mg PO DAILY #7 tablet Patient Discharge Instructions: 1. Patient will return to the correction. 2. Patient presented with altered mental status. Patient found to have bilateral pneumonia left greater than right. Patient improved with IV antibiotic therapy. Urine culture and blood culture negative. Patient has not required any oxygen. At discharge the patient will return to the correction. Patient will continue with Levaquin 500 mg daily for 7 days. Recommendation to recheck x-ray in 2-4 weeks to monitor resolution. 3. Patient has hypertension. Patient will continue with her medication-lisinopril 10 mg daily. Recommendation is to maintain blood pressures less 150/80. Further adjustment can be done by her PCP. 4. Patient has a history of a seizure disorder. She will continue with her medication-Dilantin suspension [address] scan of the head unremarkable. 5. Patient has severe dementia. Patient is not oriented to time, person and place. Patient interactive at times but bed-bound. Patient will continue with her medication- Aricept 23 mg daily and trazodone 25 mg at night for insomnia. 6. Patient has history of DVT. Patient will continue with chronic anti coagulation therapy- Xarelto 20 mg daily. 7. Advanced directives were addressed with son. Patient has paperwork for DNR. Diet: Mechanical soft Activity: Fall precautions Time spent managing pt's care (in minutes): 55
[2017-11-01 10:06] VITALS: O2SAT 96
[2017-11-01] MEDS: Levofloxacin500mg IV 500 MG/100 ML BAG IV SCH (11:18)
[2017-11-01 12:17] VITALS: BP 140/79; TEMP 97.2
== END 2017-11-01 13:35 | DRG 193 ==
LOC: ER 23:33 → ERHOLD 10-30 00:53 → 4TH 10-30 01:51
PROVIDERS: ADMIT Internal Medicine; ATTEND Family Medicine
DX: J18.9 Pneumonia, unspecified organism (principal); G93.40 Encephalopathy, unspecified; I10 Essential (primary) hypertension; G30.9 Alzheimer's disease, unspecified; F02.80 Dementia in other diseases classified elsewhere, unspecified severity, without behavioral disturbance, psychotic disturbance, mood disturbance, and anxiety; G40.909 Epilepsy, unspecified, not intractable, without status epilepticus; Z86.718 Personal history of other venous thrombosis and embolism; Z79.01 Long term (current) use of anticoagulants; Z74.01 Bed confinement status; E86.0 Dehydration
CPT/HCPCS: 36415; 51702; 70450; 71045; 80048; 80076; 80185; 81003; 81015; 82805; 83605; 83690; 83735; 84132; 84145; 84484; 85025; 85610; 87040; 87086; 87088; 93005; 94760; 96361; 96365; 99285; J0696; J2543; J3475; J7030

== ENCOUNTER 2018-05-18 15:25 | Emergency (ER) | payer OTHER, MEDICARE ==
[2018-05-18 16:11] LABS: Absolute Lymphocytes (CBC) 0.9 K/uL (0.7-4.9); Absolute Monocytes 0.8 K/uL (0.1-1.3); Eosinophils % 2.5 % (0-4.4); Hematocrit 38.8 % (36.0-45.0); Lymphocytes % 11.7 % (15.3-44.8); MPV 10.6 fL (7.6-11.3); Monocytes % 9.9 % (3.3-12.3); RBC Red Blood Cell Count 4.26 M/uL (3.86-4.86)
[2018-05-18 16:33] LABS: BUN Blood Urea Nitrogen 25 mg/dL (7-18); Bicarbonate 31 mmol/L (21-32); Glucose Level 103 mg/dL (74-106); Phenytoin (Dilantin) Level 5.8 ug/mL (10.0-20.0); Sodium Level 144 mmol/L (136-145)
--- NOTE | 2018-05-18 17:01 | RAD REPORT ---
EXAM DESCRIPTION: CT - Thorax Wo Con - 05/18/2018 4:38 pm CLINICAL HISTORY: Fall, chest pain, seizure COMPARISON: None. TECHNIQUE: Axial 5 mm thick images of the chest were obtained without IV contrast. All CT scans are performed using dose optimization technique as appropriate and may include automated exposure control or mA/KV adjustment according to patient size. FINDINGS: In the lateral right apex there is a 2.2 x 1.3 cm spiculated mass. This is typically scarr ing at the apex. This can be monitored on follow-up imaging in 4-6 months. Patient has no comparable comparison exam. Underlying scarring changes are present. No pulmonary contusion seen. Scarring or at electasis involves the posterior inferior lingula. No endobronchial lesion. There is mild bronchial w all thickening on the left. Small right pleural effusion is present. This has an attenuation value of 12-13 Hounsfield units. No left-sided pleural fluid. No pneumothorax. No pneumothorax. No abnormal mediastinal or hilar masses or lymphadenopathy seen. No gross aortic or pulmonary artery finding suspected. Assessment is limited in the absence of IV contrast. No chest wall mass or abnormal axillary lymphadenopathy. No displaced rib fractures. No pathologic katherine ne process seen. Right thyroid mass is separately detailed. IMPRESSION: No pulmonary contusion, pneumothorax or emergent CT chest finding. A 2.2 centimeter spiculated density at the right apex is probably scarring but can be monitored with repeat CT study in 4-6 months. Small right pleural effusion. Hemothorax is not suspected.
--- NOTE | 2018-05-18 17:01 | RAD REPORT ---
EXAM DESCRIPTION: CT - Facial Bones W/ Mpr - 05/18/2018 4:15 pm CLINICAL HISTORY: Seizure, fall, facial injury COMPARISON: None. TECHNIQUE: Axial 2 millimeter thick images of the facial bones were obtained with sagittal and coron al reconstruction imaging. All CT scans are performed using dose optimization technique as appropriate and may include automated exposure control or mA/KV adjustment according to patient size. FINDINGS: Patient has normal variant hyperostosis frontalis interna. No acute paranasal sinus findin gs. Patient has chronic sphenoid sinusitis. Mastoid air cells are clear. Condyles of the mandible are normally positioned. No facial bone fracture identified. No acute globe or orbital content abnormali ty. No air or foreign body in the soft tissues. IMPRESSION: No facial bone fracture. Chronic sphenoid sinusitis.
--- NOTE | 2018-05-18 17:01 | RAD REPORT ---
EXAM DESCRIPTION: CT - CTHCSPWOC - 05/18/2018 4:14 pm CLINICAL HISTORY: Seizure, fall, head and neck injury COMPARISON: CT head and cervical February 2014 TECHNIQUE: Axial 5 mm thick images of the head were obtained. Axial 2 mm thick images of the cervic al spine were obtained with sagittal and coronal reconstruction images generated and reviewed. All CT scans are performed using dose optimization technique as appropriate and may include automated exposure control or mA/KV adjustment according to patient size. FINDINGS: No intracranial hemorrhage, mass, edema or acute intracranial finding. No suspicion for ac afia infarction. Prominent atrophy and chronic ischemic changes are present including basal ganglia, t halamus and brainstem chronic ischemic changes. Ventricles are in proportion to volume loss. Intracra nial findings are not substantially different from 2014. Arterial and physiologic calcifications are present. Mastoid air cells are clear. Facial bones, orbits and sinuses are separately detailed. Cervical body height and alignment are normal. No disk space narrowing. No fracture or acute bony abn ormality. Facet joint degenerative changes are present. Central canal detail is inherently limited. No paraspinal mass or hematoma. Patient has a large thyroid gland with a 3.8 centimeter right-side ma ss that has enlarged from 2014. IMPRESSION: Prominent atrophy and chronic ischemic change. No hemorrhage or acute intracranial findi ng. Cervical spine degenerative change with no fracture or acute finding. Central canal detail is inheren tly limited. Enlarged thyroid gland with a 3.8 centimeter right-side thyroid mass or nodule. This has enlarged fro 2013. Orbits, sinuses and facial bones are separately detailed.
[2018-05-18] MEDS ORDERED: LIDOCAINE 1% 20 ML MDV ONE (17:28)
--- NOTE | 2018-05-18 17:51 | ER ---
Nurse's Notes [facility] Name: Mireya Farah Age: 82 yrs Sex: Female : 1935 Arrival Date: 05/18/2018 Time: 15:28 Bed 23 Private MD: Diagnosis: Fall from non-moving wheelchair;Laceration without foreign body of lip;Unspecified injury of face and head;Sub-therapeutic Dilantin level Presentation: 05/18 15:29 Presenting complaint: EMS states: Pt had witnessed fall forward after absence seizure la1 and got a laceration on her upper lip. Transition of care: patient was not received from another setting of care. Onset of symptoms was May 18, 2018. Risk Assessment: Do you want to hurt yourself or someone else? Patient reports no desire to harm self or others. Initial Sepsis Screen: Does the patient meet any 2 criteria? No. Patient's initial sepsis screen is negative. Does the patient have a suspected source of infection? No. Patient's initial sepsis screen is negative. Care prior to arrival: None. 15:29 Method Of Arrival: EMS: [facility] la1 15:29 Acuity: SHEILA 3 la1 Historical: - Allergies: 15:31 Codeine; la1 - PMHx: 15:31 Alzheimers; Absence epileptic syndrome; Aphasia; CVA; Dementia; Depression; la1 Hypertension; Hypokalemia; insomnia; muscle atrophy; UTI; - Immunization history:: Adult Immunizations unknown. - Social history:: Smoking status: Patient/guardian denies using tobacco. - Ebola Screening: : No symptoms or risks identified at this time. Screenin:33 Abuse screen: Denies threats or abuse. Nutritional screening: No deficits noted. la1 Tuberculosis screening: No symptoms or risk factors identified. Fall Risk Fall in past 12 months (25 points). Secondary diagnosis (15 points) No IV (0 pts). Ambulatory Aid- None/Bed Rest/Nurse Assist (0 pts). Gait- Normal/Bed Rest/Wheelchair (0 pts) Mental Status- Overestimates/Forgets Limitations (15 pts.). Total Puri Fall Scale indicates High Risk Score (45 or more points). As available patient and family educated on Fall Prevention Program and Strategies. Assessment: 15:31 General: Appears in no apparent distress. Behavior is calm, cooperative. Neuro: Level la1 of Consciousness is awake, alert, obeys commands, Oriented to person. Cardiovascular: Capillary refill < 3 seconds Patient's skin is warm and dry. Respiratory: Airway is patent Respiratory effort is even, unlabored, Respiratory pattern is regular, symmetrical. GI: No signs and/or symptoms were reported involving the gastrointestinal system. : No signs and/or symptoms were reported regarding the genitourinary system. Injury Description: Laceration sustained to upper rosa border is clean, 0.5 to 2.5 cm long, was sustained less than 30 minutes ago. no active bleeding noted at this time. 16:40 Reassessment: Patient appears in no apparent distress at this time. No changes from la1 previously documented assessment. 17:50 Reassessment: Patient appears in no apparent distress at this time. No changes from la1 previously documented assessment. Patient and/or family updated on plan of care and expected duration. Pain level reassessed. 19:19 Reassessment: Patient appears in no apparent distress at this time. No changes from la1 previously documented assessment. Patient and/or family updated on plan of care and expected duration. Pain level reassessed. awaiting transportation to [place], no changes. Vital Signs: 15:28 BP 156 / 74; Pulse 84; Resp 18; Temp 97.4; Pulse Ox 98% on R/A; la1 16:30 BP 145 / 77; Pulse 86; Resp 19; Pulse Ox 98% on R/A; la1 17:49 BP 164 / 84; Pulse 77; Resp 16; Pulse Ox 98% on R/A; la1 18:23 BP 163 / 91; Pulse 91; Resp 18; Pulse Ox 98% on R/A; la1 19:19 BP 134 / 90; Pulse 91; Resp 16; Pulse Ox 98% on R/A; la1 20:41 BP 124 / 97; Pulse 84; Resp 16; Temp 97.5; Pulse Ox 98% on R/A; la1 Matlock Coma Score: 17:00 Eye Response: spontaneous(4). Verbal Response: confused(4). Motor Response: localizes snw pain(5). Total: 13. ED Course: 15:28 Patient arrived in ED. hb 15:28 Bryan Hatfield RN is Primary Nurse. la1 15:29 Arm band placed on left wrist. la1 15:30 Triage completed. la1 15:34 Bed in low position. Call light in reach. la1 15:36 Liana Rincon FNP-C [facility]. snw 15:36 Osbaldo Barreto MD is Attending Physician. snw 16:01 Inserted saline lock: 20 gauge in right antecubital area, using aseptic technique. lt1 16:01 Initial lab(s) drawn, by me, sent to lab. lt1 16:09 CT completed. Patient moved to CT via stretcher. Patient moved back from CT. kw1 16:15 CT Head C Spine In Process Unspecified. EDMS 16:15 Facial Bones W/O Con CT In Process Unspecified. EDMS 16:38 Thorax Wo Con In Process Unspecified. EDMS 17:51 Assist provider with laceration repair on upper rosa border that was between 2.6 la1 to 7.5 cm using sutures. Set up tray. Performed by Liana MERCADO Patient tolerated well. 20:40 IV discontinued, intact, bleeding controlled, No redness/swelling at site. Pressure la1 dressing applied. Administered Medications: 17:50 Drug: Lidocaine (1 %) 1 vials Volume: 20 ml; Route: Infiltration; la1 18:20 Drug: Fosphenytoin 1 grams Route: IVPB; Site: right antecubital; la1 19:20 Follow up: IV Status: Completed infusion la1 Outcome: 17:51 Discharge ordered by . snw 20:40 Discharged to senior living. la1 20:40 Condition: stable 20:40 Discharge instructions given to senior living, Instructed on discharge instructions, follow up and referral plans. medication usage, Demonstrated understanding of instructions, follow-up care, medications. 20:41 Patient left the ED. la1 Signatures: Dispatcher [employer] [facility] Liana Rincon FNP-C PATTERN DRUM MAKER-Csnw Bryan Hatfield RN RN la1 Alanis Cole RN RN Viola Venegas kw1 Damaris Alvarado lt1
--- NOTE | 2018-05-18 17:52 | EDPHYS ---
Physician Documentation [facility] Name: Mireya Farah Age: 82 yrs Sex: Female : 1935 Arrival Date: 05/18/2018 Time: 15:28 Bed 23 Private MD: ED Physician Osbaldo Barreto HPI: 05/18 17:00 This 82 yrs old Female presents to ER via EMS with complaints of lip snw laceration. 17:00 The patient or guardian reports a laceration, ragged. The complaints affect the upper snw rosa border. Context of injury: The problem was sustained at a [facility] or assisted living facility, resulted from a fall, from a seated position. Onset: The symptoms/episode began/occurred suddenly, just prior to arrival. Associated signs and symptoms: The patient has no apparent associated signs or symptoms, Loss of consciousness: This patient did not experience any loss of consciousness. Pertinent positives: seizure, prior to fall. Severity of symptoms: At their worst the symptoms were moderate. The patient has experienced similar episodes in the past. The patient has not recently seen a physician. Historical: - Allergies: 15:31 Codeine; la1 - PMHx: 15:31 Alzheimers; Absence epileptic syndrome; Aphasia; CVA; Dementia; Depression; la1 Hypertension; Hypokalemia; insomnia; muscle atrophy; UTI; - Immunization history:: Adult Immunizations unknown. - Social history:: Smoking status: Patient/guardian denies using tobacco. - Ebola Screening: : No symptoms or risks identified at this time. ROS: 16:59 Constitutional: Negative for fever, chills, and weight loss, Eyes: Negative for injury, snw pain, redness, and discharge, Neck: Negative for injury, pain, and swelling, Cardiovascular: Negative for chest pain, palpitations, and edema, Respiratory: Negative for shortness of breath, cough, wheezing, and pleuritic chest pain, Abdomen/GI: Negative for abdominal pain, nausea, vomiting, diarrhea, and constipation, Back: Negative for injury and pain, : Negative for injury, bleeding, discharge, and swelling, MS/Extremity: Negative for injury and deformity, Skin: Negative for injury, rash, and discoloration. 16:59 ENT: Positive for injury or acute deformity, laceration, of the upper rosa border. 16:59 Neuro: Positive for seizure activity, pt experienced a seizure and fell forward out of wheelchair to floor. Exam: 16:57 Eyes: Pupils equal round and reactive to light, extra-ocular motions intact. Lids and snw lashes normal. Conjunctiva and sclera are non-icteric and not injected. Cornea within normal limits. Periorbital areas with no swelling, redness, or edema. Neck: Trachea midline, no thyromegaly or masses palpated, and no cervical lymphadenopathy. Supple, full range of motion without nuchal rigidity, or vertebral point tenderness. No Meningismus. Chest/axilla: Normal chest wall appearance and motion. Nontender with no deformity. No lesions are appreciated. Cardiovascular: Regular rate and rhythm with a normal S1 and S2. No gallops, murmurs, or rubs. Normal PMI, no JVD. No pulse deficits. Respiratory: Lungs have equal breath sounds bilaterally, clear to auscultation and percussion. No rales, rhonchi or wheezes noted. No increased work of breathing, no retractions or nasal flaring. Abdomen/GI: Soft, non-tender, with normal bowel sounds. No distension or tympany. No guarding or rebound. No evidence of tenderness throughout. Back: No spinal tenderness. No costovertebral tenderness. Full range of motion. Skin: Warm, dry with normal turgor. Normal color with no rashes, no lesions, and no evidence of cellulitis. MS/ Extremity: Pulses equal, no cyanosis. Neurovascular intact. Full, normal range of motion. Neuro: Awake and alert, GCS 15, oriented to person, place, time, and situation. Cranial nerves II-XII grossly intact. Motor strength 5/5 in all extremities. Sensory grossly intact. Cerebellar exam normal. Normal gait. 16:57 Constitutional: The patient appears awake, listless. 16:57 Head/face: Noted is a laceration(s), that is deep, 2 cm(s), of the upper rosa border. 16:57 ENT: External ear(s): are unremarkable, TM's: are normal, Nose: is normal, Mouth: Lips: normal, approximately 2 cm(s), upper rosa border, Posterior pharynx: is normal, Dental exam: dental caries, that is severe, diffusely, Voice: is normal. Vital Signs: 15:28 BP 156 / 74; Pulse 84; Resp 18; Temp 97.4; Pulse Ox 98% on R/A; la1 16:30 BP 145 / 77; Pulse 86; Resp 19; Pulse Ox 98% on R/A; la1 17:49 BP 164 / 84; Pulse 77; Resp 16; Pulse Ox 98% on R/A; la1 18:23 BP 163 / 91; Pulse 91; Resp 18; Pulse Ox 98% on R/A; la1 19:19 BP 134 / 90; Pulse 91; Resp 16; Pulse Ox 98% on R/A; la1 20:41 BP 124 / 97; Pulse 84; Resp 16; Temp 97.5; Pulse Ox 98% on R/A; la1 Geraldo Coma Score: 17:00 Eye Response: spontaneous(4). Verbal Response: confused(4). Motor Response: localizes snw pain(5). Total: 13. Laceration: 17:52 Wound Repair of 2cm ( 0.8in ) subcutaneous laceration to upper rosa border. snw Irregularly shaped.. Distal neuro/vascular/tendon intact. Anesthesia: Wound infiltrated with 5 mls of 1% lidocaine. Wound prep: Moderate cleansing with hibiclenz by me. Skin closed with 5 6-0 chromic using buried sutures . Dressed with none. Patient tolerated well. MDM: 15:36 Patient medically screened. snw 17:54 Data reviewed: vital signs, nurses notes. Data interpreted: Pulse oximetry: on room air snw is 98 %. Interpretation: normal. Counseling: I had a detailed discussion with the patient and/or guardian regarding: the historical points, exam findings, and any diagnostic results supporting the discharge/admit diagnosis, the presence of at least one elevated blood pressure reading (>120/80) during this emergency department visit, lab results, radiology results, the need for outpatient follow up, to return to the emergency department if symptoms worsen or persist or if there are any questions or concerns that arise at home. Special discussion: Based on the history and exam findings, there is no indication for further emergent testing or inpatient evaluation. I discussed with the patient/guardian the need to see the primary care provider for further evaluation of the symptoms. 05/18 15:38 Order name: CBC with Diff; Complete Time: 16:19 snw 05/18 15:38 Order name: Chem 7; Complete Time: 16:53 snw 05/18 15:38 Order name: Dilantin; Complete Time: 16:53 snw 05/18 15:38 Order name: CT Head C Spine; Complete Time: 17:04 snw 05/18 15:38 Order name: Facial Bones W/O Con CT; Complete Time: 17:04 snw 05/18 16:22 Order name: Thorax Wo Con; Complete Time: 17:04 EDMS 05/18 15:38 Order name: SL; Complete Time: 15:59 snw 05/18 17:03 Order name: Dressing - Wound; Complete Time: 17:50 snw 05/18 17:03 Order name: Gloves, Sterile; Complete Time: 17:50 snw 05/18 17:03 Order name: Setup Suture Tray; Complete Time: 17:50 snw Administered Medications: 17:50 Drug: Lidocaine (1 %) 1 vials Volume: 20 ml; Route: Infiltration; la1 18:20 Drug: Fosphenytoin 1 grams Route: IVPB; Site: right antecubital; la1 19:20 Follow up: IV Status: Completed infusion la1 Disposition: 05/19 07:06 Co-signature as Attending Physician, Osbaldo Barreto MD. rn Disposition: 05/18/18 17:51 Discharged to Home. Impression: Fall from non-moving wheelchair, Laceration without foreign body of lip, Unspecified injury of face and head, Sub-therapeutic Dilantin level. - Condition is Stable. - Discharge Instructions: Head Injury, Adult, Fall Prevention in the Home, Facial Laceration, Seizure, Adult, Fall Prevention in Hospitals, Adult. - Medication Reconciliation Form, Thank You Letter, Antibiotic Education, Prescription Opioid Use form. - Follow up: Private Physician; When: 2 - 3 days; Reason: Recheck today's complaints, Continuance of care, Re-evaluation by your physician. Follow up: Emergency Department; When: As needed; Reason: Worsening of condition. Signatures: Dispatcher [employer] EDLiana Velazco, DIVISION OPERATIONS SPECIALIST-C DIVISION OPERATIONS SPECIALIST-Csnw Osbaldo Barreto MD MD rn Attema, Lee, RN RN la1 Corrections: (The following items were deleted from the chart) 05/18 20:41 17:51 05/18/2018 17:51 Discharged to Home. Impression: Fall from non-moving wheelchair; la1 Laceration without foreign body of lip; Unspecified injury of face and head; Sub-therapeutic Dilantin level. Condition is Stable. Forms are Medication Reconciliation Form, Thank You Letter, Antibiotic Education, Prescription Opioid Use. Follow up: Private Physician; When: 2 - 3 days; Reason: Recheck today's complaints, Continuance of care, Re-evaluation by your physician. Follow up: Emergency Department; When: As needed; Reason: Worsening of condition. snw
[2018-05-18] MEDS ORDERED: FOSPHENYTOIN PE 1,000 MG in NA CHLORIDE 0.9% 100 ML IV ONE (19:00)
[2018-05-18 20:54] VITALS: O2SAT 98
[2018-05-18 21:00] VITALS: BP 124/97; TEMP 97.5
== END 2018-05-18 20:41 | disposition home or self-care (01) ==
LOC: ER 15:25
PROC: 0CQ0XZZ Repair Upper Lip, External Approach (ICD-10-PCS; principal; 2018-05-18)
DX: S01.511A Laceration without foreign body of lip, initial encounter (principal); S09.93XA Unspecified injury of face, initial encounter; S09.90XA Unspecified injury of head, initial encounter; R79.1 Abnormal coagulation profile; G30.9 Alzheimer's disease, unspecified; F02.80 Dementia in other diseases classified elsewhere, unspecified severity, without behavioral disturbance, psychotic disturbance, mood disturbance, and anxiety; I10 Essential (primary) hypertension; W05.0XXA Fall from non-moving wheelchair, initial encounter; Y93.89 Activity, other specified; Y92.129 Unspecified place in nursing home as the place of occurrence of the external cause; Z88.5 Allergy status to narcotic agent
CPT/HCPCS: 12011; 36415; 70450; 70486; 71250; 72125; 76377; 80048; 80185; 85025; 96365; 99284; Q2009